=== PATIENT | female | born 2000 | race Caucasian/White ===

== ENCOUNTER 2019-10-01 14:29 | Emergency (ER) | payer OTHER ==
[~2019-10-01] VITALS: Ht 157.5 cm; Wt 65.7 kg
[2019-10-01] MEDS ORDERED: diphenhydrAMINE INJ 50MG/ML VIAL (J1200) IV STA (14:54)
[2019-10-01] MEDS ORDERED: METOCLOPRAMIDE INJ 10MG/2ML VIAL (J2765) IV ONE (15:00)
[2019-10-01] MEDS ORDERED: NS 1,000 ML IV ONE (15:00)
[2019-10-01 15:07] LABS: HEMATOCRIT 45.5 % (36.0-47.0); HEMOGLOBIN 15.3 g/dl (12.0-15.5); MEAN CORPUSCULAR HEMOGLOBIN 31.3 pg (27.0-33.0); MEAN CORPUSCULAR HGB CONC 33.6 g/dl (32.0-36.5); PLATELET COUNT, AUTOMATED 203 10^3/uL (150-450); RED BLOOD COUNT 4.89 10^6/uL (4.00-5.40); WHITE BLOOD COUNT 7.7 10^3/uL (4.0-10.0)
[2019-10-01 15:32] LABS: BLOOD UREA NITROGEN 7 MG/DL (7-18); CALCIUM LEVEL 9.1 MG/DL (8.5-10.1); CARBON DIOXIDE LEVEL 27 MEQ/L (21-32); CHLORIDE LEVEL 107 MEQ/L (98-107); CREATININE FOR GFR 0.79 MG/DL (0.55-1.30); GLOMERULAR FILTRATION RATE > 60.0 (>60); GLUCOSE, FASTING 93 MG/DL (70-100); POTASSIUM SERUM 3.7 MEQ/L (3.5-5.1); SODIUM LEVEL 140 MEQ/L (136-145)
[2019-10-01 15:40] LABS: HCG, SERUM QUALITATIVE NEGATIVE (NEGATIVE)
[2019-10-01] MEDS ORDERED: KETOROLAC 30 MG/ML VIAL (J1885) IV ONE (16:00)
--- NOTE | 2019-10-01 16:07 | REP ---
Clinical: Headache with nausea and vomiting . Comparison: None . Findings: The ventricles, sulci, and cisterns are normal in position and appearance. Avelar-white differentiation is maintained. No acute intracranial hemorrhage, mass/mass effect, pathology or trauma/injury. No evidence for acute infarction. No extra-axial fluid collection. Calvarium is intact. Paranasal sinuses and mastoid air cells are clear. Impression: Normal noncontrast head CT. No evidence for acute intracranial pathology or trauma/injury. Electronically Signed by Tulio Villegas MD 10/01/2019 03:59 P
[2019-10-01] MEDS ORDERED: REGL10TA6 PO (16:40)
[2019-10-01 16:41] VITALS: BP 111/64
== END 2019-10-01 16:48 | disposition home or self-care (01) ==
LOC: M ED 14:29
DX: R51 Headache (principal); R11.2 Nausea with vomiting, unspecified
CPT/HCPCS: 70450; 80048; 81001; 84703; 85027; 96361; 96374; 96375; 99284; J1200; J1885; J2765

== ENCOUNTER → 2020-01-05 | Outpatient (REF) | payer OTHER ==
[~2020-01-05] MED LIST: REGL10TA6 PO
== END ==
LOC: M SFHCLERA 19:24
PROVIDERS: ATTEND Physician Assistant
DX: J02.9 Acute pharyngitis, unspecified (principal)